=== PATIENT | female | born 1980 | race Caucasian/White ===

== ENCOUNTER 2020-06-01 06:55 | Day surgery (SDC) | payer MEDICAID ==
[~2020-06-01 06:55] MED LIST: Lidocaine 1%/Sod Bicarbonate in NS 8.4% 1 ML Syringe IDERM PRN; Sodium Chloride 0.9% 10 ML Syringe FLUSH PRN
[2020-06-01] MEDS ORDERED: Rocuronium 50 MG/5 ML Vial ONE ×2 (07:11→09:23)
[2020-06-01] MEDS ORDERED: Ondansetron 4 MG/2 ML SDV ONE (07:11)
[2020-06-01] MEDS ORDERED: Propofol 200 MG/20 ML SDV ONE (07:11)
[2020-06-01] MEDS ORDERED: Lidocaine 1% 4 ML ONE (07:11)
[2020-06-01] MEDS ORDERED: Midazolam 1 MG/ML 2 ML SDV ONE (07:12)
[2020-06-01] MEDS ORDERED: ceFAZolin 1 GM Vial ONE (07:12)
[2020-06-01] MEDS ORDERED: fentaNYL 250 MCG/5 ML SDV ONE (07:12)
[2020-06-01] MEDS ORDERED: Dexamethasone 4 MG/ML 5 ML MDV ONE (07:13)
--- NOTE | 2020-06-01 07:26 | PCM.PREANE ---
Preanesthetic Assessment - Procedure Proposed Procedure: lap assisted vag hyst with bs - Anesthesia/Transfusion/Family Hx Anesthesia History: Prior Anesthesia Without Reaction Family History of Anesthesia Reaction: No Transfusion History: No Prior Transfusion(s) - Review of Systems General: No Symptoms Pulmonary: No Symptoms Cardiovascular: No Symptoms Gastrointestinal: No Symptoms Neurological: No Symptoms Other: Reports: Easy Bruising, Thyroid Problems, Depression, Anxiety - Physical Assessment NPO Status Date: 05/31/20 NPO Status Time: 22:00 Vital Signs: 140/87 87 97% 18 97.8 Height: 5 ft 3 in Weight: 123.5 kg ASA Class: 3 Mental Status: Alert & Oriented x3 Airway Class: Mallampati = 1 Dentition: Reports: Normal Dentition Thyro-Mental Finger Breadths: 3 Mouth Opening Finger Breadths: 3 ROM/Head Extension: Full Lungs: Clear to Auscultation, Normal Respiratory Effort Cardiovascular: Regular Rate, Regular Rhythm, No Murmurs - Lab Values: Laboratory Last Values WBC 8.04 K/mm3 (3.98-10.04) 05/28/20 11:20 RBC 5.15 M/mm3 (3.98-5.22) 05/28/20 11:20 Hgb 13.5 gm/dl (11.2-15.7) 05/28/20 11:20 Hct 41.1 % (34.1-44.9) 05/28/20 11:20 MCV 79.8 fl (79.4-94.8) D 05/28/20 11:20 MCH 26.2 pg (25.6-32.2) 05/28/20 11:20 MCHC 32.8 g/dl (32.2-35.5) 05/28/20 11:20 RDW Std Deviation 41.9 fL (36.4-46.3) 05/28/20 11:20 Plt Count 246 K/mm3 (182-369) 05/28/20 11:20 MPV 11.4 fl (9.4-12.3) 05/28/20 11:20 Neut % (Auto) 69.9 % (34.0-71.1) 05/28/20 11:20 Lymph % (Auto) 20.6 % (19.3-51.7) 05/28/20 11:20 [place] % (Auto) 6.8 % (4.7-12.5) 05/28/20 11:20 Eos % (Auto) 2.0 (0.7-5.8) 05/28/20 11:20 Baso % (Auto) 0.5 % (0.1-1.2) 05/28/20 11:20 Neut # (Auto) 5.61 K/mm3 (1.56-6.13) 05/28/20 11:20 Lymph # (Auto) 1.66 K/mm3 (1.18-3.74) 05/28/20 11:20 [place] # (Auto) 0.55 K/mm3 (0.24-0.36) H 05/28/20 11:20 Eos # (Auto) 0.16 K/mm3 (0.04-0.36) 05/28/20 11:20 Baso # (Auto) 0.04 K/mm3 (0.01-0.08) 05/28/20 11:20 Sodium 138 mEq/L (136-145) 05/28/20 11:20 Potassium 4.1 mEq/L (3.5-5.1) 05/28/20 11:20 Chloride 104 mEq/L (98-107) 05/28/20 11:20 Carbon Dioxide 25 mEq/L (21-32) 05/28/20 11:20 Anion Gap 13.1 (5-15) 05/28/20 11:20 BUN 12 mg/dL (7-18) 05/28/20 11:20 Creatinine 0.6 mg/dL (0.55-1.02) 05/28/20 11:20 Est Cr Clr Drug Dosing TNP 05/28/20 11:20 Estimated GFR (MDRD) > 60 mL/min (>60) 05/28/20 11:20 BUN/Creatinine Ratio 20.0 (14-18) H 05/28/20 11:20 Glucose 92 mg/dL (74-106) 05/28/20 11:20 Calcium 8.9 mg/dL (8.5-10.1) 05/28/20 11:20 Total Bilirubin 0.7 mg/dL (0.2-1.0) 05/28/20 11:20 AST 18 U/L (15-37) 05/28/20 11:20 ALT 39 U/L (14-59) 05/28/20 11:20 Alkaline Phosphatase 103 U/L (46-116) 05/28/20 11:20 Total Protein 7.2 g/dl (6.4-8.2) 05/28/20 11:20 Albumin 3.5 g/dl (3.4-5.0) 05/28/20 11:20 Globulin 3.7 gm/dL 05/28/20 11:20 Albumin/Globulin Ratio 1.0 (1-2) 05/28/20 11:20 Urine Color Yellow (Yellow) 05/28/20 11:20 Urine Appearance Clear (Clear) 05/28/20 11:20 Urine pH 7.0 (5.0-8.0) 05/28/20 11:20 Ur Specific [place] 1.025 (1.005-1.030) 05/28/20 11:20 Urine Protein Negative (Negative) 05/28/20 11:20 Urine Glucose (UA) Negative (Negative) 05/28/20 11:20 Urine Ketones Negative (Negative) 05/28/20 11:20 Urine Occult Blood Negative (Negative) 05/28/20 11:20 Urine Nitrite Negative (Negative) 05/28/20 11:20 Urine Bilirubin Negative (Negative) 05/28/20 11:20 Urine Urobilinogen 0.2 (0.2-1.0) 05/28/20 11:20 Ur Leukocyte Esterase Negative (Negative) 05/28/20 11:20 SARS-CoV-2 (PCR) Not detected (NOT DETECT) 05/28/20 11:00 - Allergies Allergies/Adverse Reactions: Allergies Allergy/AdvReac Type Severity Reaction Status Date / Time No Known Allergies Allergy Verified 05/31/20 14:04 - Blood Blood Available: Yes - Acknowledgements Anesthesia Type Planned: General Anesthesia Pt an Appropriate Candidate for the Planned Anesthesia: Yes Alternatives and Risks of Anesthesia Discussed w Pt/Guardian: Yes Pt/Guardian Understands and Agrees with Anesthesia Plan: Yes PreAnesthesia Questionnaire HEENT History: Reports: Impaired Vision Cardiovascular History: Reports: High Cholesterol Respiratory History: Reports: None Gastrointestinal History: Reports: Other (See Below) Other Gastrointestinal History: Difficulty loosing weight MASSAGE THERAPIST History: Reports: Polycystic Ovaries Other OB/BYN History: Irregular Menstrual Bleeding Neurological History: Reports: Migraines Psychiatric History: Reports: Anxiety, Depression, Other (See Below) Other Psychiatric History: Fatigue Endocrine/Metabolic History: Reports: Hypothyroidism, Obesity/BMI 30+ Oncologic (Cancer) History: Reports: None - Past Surgical History HEENT Surgical History: Reports: Adenoidectomy, Tonsillectomy, Other (See Below) Other HEENT Surgeries/Procedures: Otoplasty Musculoskeletal Surgical History: Reports: Other (See Below) (cyst wrist) - SUBSTANCE USE Smoking Status *Q: Never Smoker Tobacco Use Within Last Twelve Months: No Second Hand Smoke Exposure: No Days Per Week of Alcohol Use: 0 Recreational Drug Use History: No - HOME MEDS Home Medications: Home Meds Cholecalciferol (Vitamin D3) [Vitamin D] 05/31/20 [History] Cyclobenzaprine [Flexeril] 1 - 2 tab PO ASDIRECTED PRN 05/31/20 [History] LORazepam [Ativan] 0.5 mg PO ASDIRECTED PRN 05/31/20 [History] Levothyroxine [Synthroid] 100 mcg PO QAM 05/31/20 [History] Multivitamin 1 tab PO DAILY 05/31/20 [History] Vortioxetine Hydrobromide [Trintellix] 20 mg PO BEDTIME 05/31/20 [History] atorvaSTATin [Lipitor] 40 mg PO BEDTIME 05/31/20 [History] metFORMIN HCl [Metformin HCl ER] 500 mg PO BID 05/31/20 [History] - CURRENT (IN HOUSE) MEDS Current Meds: Current Medications Lactated Ringer's (Ringers, Lactated) 1,000 mls @ 125 mls/hr IV ASDIRECTED SHOSHANA Stop: 06/01/20 23:00 Lidocaine/Sodium Bicarbonate (Buffered Lidocaine 1% In Ns 8.4%) 0.25 ml IDERM ONETIME PRN PRN Reason: Prior to IV Start Stop: 06/01/20 18:00 Sodium Chloride (Saline Flush) 10 ml FLUSH ASDIRECTED PRN PRN Reason: Keep Vein Open Stop: 06/01/20 18:00 Discontinued Medications Cefazolin Sodium (Ancef) Confirm Administered Dose 3 gm .ROUTE .STK-MED ONE Stop: 06/01/20 07:13 Dexamethasone (Dexamethasone) Confirm Administered Dose 20 mg .ROUTE .STK-MED ONE Stop: 06/01/20 07:14 Fentanyl (Sublimaze) Confirm Administered Dose 250 mcg .ROUTE .STK-MED ONE Stop: 06/01/20 07:13 Lidocaine HCl (Xylocaine-Mpf 1%) Confirm Administered Dose 4 mls @ as directed .ROUTE .STK-MED ONE Stop: 06/01/20 07:12 Midazolam HCl (Versed 1 Mg/Ml) Confirm Administered Dose 2 mg .ROUTE .STK-MED ONE Stop: 06/01/20 07:13 Ondansetron HCl (Zofran) Confirm Administered Dose 4 mg .ROUTE .STK-MED ONE Stop: 06/01/20 07:12 Propofol (Diprivan 20 Ml) Confirm Administered Dose 200 mg .ROUTE .STK-MED ONE Stop: 06/01/20 07:12 Rocuronium [place] (Zemuron) Confirm Administered Dose 50 mg .ROUTE .STK-MED ONE Stop: 06/01/20 07:12
[2020-06-01] MEDS: Lactated Ringers 1,000 ML IV SCH ×3 (07:35→13:36)
[2020-06-01] MEDS ORDERED: Ketamine 500 mg/10 ML MDV ONE (08:43)
[2020-06-01] MEDS ORDERED: fentaNYL 100 MCG/2 ML SDV IVPUSH PRN (08:51)
[2020-06-01] MEDS ORDERED: Ondansetron 4 MG/2 ML SDV IVPUSH PRN ×2 (08:51→10:27)
[2020-06-01] MEDS: Bupivacaine 0.5% 10 ML SDV ONE ×2 (08:57→09:25)
[2020-06-01] MEDS ORDERED: Lactated Ringers 1,000 ML ONE (08:59)
[2020-06-01] MEDS ORDERED: ePHEDrine Sulfate/0.9% NaCl/Pf 25 MG/5 ML SYRINGE IV ONE (09:18)
[2020-06-01] MEDS: Lidocaine 1% with EPINEPHrine 1:100,000 20 ML MDV ONE ×2 (09:25→09:45)
[2020-06-01] MEDS: Sodium Chloride 0.9% 50 ML SDV ONE ×2 (09:26→09:45)
[2020-06-01] MEDS ORDERED: Acetaminophen/oxyCODONE 325-5 MG Tab PO PRN (10:27)
--- NOTE | 2020-06-01 10:40 | PCM.POSTAN ---
POST ANESTHESIA ASSESSMENT - MENTAL STATUS Mental Status: Alert, Oriented - VITAL SIGNS Vital Signs: Last Vital Signs Temp 98.8 F 06/01/20 10:32 Pulse 87 06/01/20 07:10 Resp 11 L 06/01/20 10:32 BP 94/47 L 06/01/20 10:32 Pulse Ox 96 06/01/20 10:32 94/47 96% 68 11 98.7f - RESPIRATORY Respiratory Status: Respiratory Rate WNL, Airway Patent, O2 Saturation Stable, Supplemental Oxygen - CARDIOVASCULAR CV Status: Pulse Rate WNL, Blood Pressure Stable - GASTROINTESTINAL GI Status: No Symptoms - PAIN Pain Score: 0 - POST OP HYDRATION Hydration Status: Adequate & Stable
--- NOTE | 2020-06-01 10:47 | PCM.OPNOTE ---
- General Post-Op/Procedure Note Date of Surgery/Procedure: 06/01/20 Operative Procedure(s): Laparoscopically assisted vaginal hysterectomy with bilateral salpingectomy Findings: Ovaries bilaterally were within normal limits and of reproductive age parents. Uterus is small, no adnexal abnormalities noted. Liver edge was without concern. Cervix is nulliparous. Vaginal vault was nulliparous. Pre Op Diagnosis: 1. Abnormal uterine bleeding. 2. Menorrhagia. 3. Dy smenorrhea Post-Op Diagnosis: Same Anesthesia Technique: General ET Tube Other Anesthesia Type: Marcaine 0.5% - 10 cc local, lidocaine quarter percent with epi15 cclocal Primary Surgeon: Giuseppe Hayden Secondary Surgeon: Tamar Chris Anesthesia Provider: Reynaldo [employer]inery Pipeline Operator: Jimena Bales Reason Refinery Pipeline Operator Was Necessary: Retraction, assistance, patient safety, quality of care. Pathology: Uterus, fallopian tubes bilaterally as 1 specimen Fluid Replacement, Intraop: 1,900 Output, Urine Amount: 125 EBL in mLs: 125 Drain/Tube Comments:: Indwelling bladder catheter during procedure only Complications: None Condition: Good Free Text/Narrative:: Surgery duration: 85 minutes The patient was taken to the operating room placed in supine position on the operating table. She received 3 g of Ancef preoperatively for infection prophylaxis. She had signed consent previously. After adequate anesthesia patient was placed in a dorsal lithotomy position. It should be noted she had sequential compression stockings in place for DVT prophylaxis. A uterine manipulator was placed as was an latex free indwelling bladder catheter. This was done after adequate prepping and draping. The patient was placed in supine position and 3 laparoscopic port sites were developed. Marcaine 0.5% approximately 3-5 mL was injected at each site. Verres needle was placed and pneumoperitoneum was achieved with 3 L of CO2. Infraumbilical, suprapubic and 2 lateral port sites were developed. Under laparoscopic guidance the upper portion of the hysterectomy was performed. The right fallopian tube was elevated and using the seal vessel closure system was taken down in the usual fashion. The ovarian ligament, broad ligament and round ligament were then taken down. The ovary was spared per patient desire. Same procedure was done on the patient's left side. The bilateral broad ligaments was taken down to the area of the uterine vasculature. Uterine vasculature was developed in the usual fashion using the cautery system. Both uterine arteries were identified and developed. The bladder flap was then developed. Vaginal approach was then undertaken. The patient was placed in the dorsal lithotomy position and a weighted speculum was placed in the vagina. The cervix was injected with lidocaine quarter percent with epinephrine 15 mL total. A full circumference incision was made through the epithelium around the cervix. Posterior cul-de-sac was entered without problems. The left uterosacral ligament and then the right uterosacral were taken down using the Enseal vessel closure system. The cardinal ligament and what remained of the uterine vascular vessels and cervical branches of the vessels were managed with the Enseal vessel closure system on each side. Anterior cul-de-sac was then entered and the remaining portion of broad ligament on the right side and a small portion of broad ligament remaining on the left side were then developed in the usual fashion. Uterus was then removed. At this point the uterus was completely removed and sent as specimen. The vaginal cuff was then run with a locked running suture of 0 Monocryl from the 2 o'clock position to the 10 o'clock position. The vagina was closed with a running locked suture of 0 Monocryl. Hemostasis was confirmed this time and no bleeding was noted. Laparoscopy was then performed to ensure hemostasis. Pneumoperitoneum was reestablished and the laparoscope was placed. Suction and irrigation were used to clear some old blood from the pelvis. The pelvis was found to be hemostatically intact. There was no evidence of any bowel adhesion to the vaginal cuff area noted. The sleeves were removed under direct visualization and the upper sleeve was removed after reversal of the pneumoperitoneum. Each of these sites were closed with a single interrupted suture of 3-0 Monocryl. They were further approximated with Dermabond skin glue. At this point the patient was awakened from general endotracheal anesthesia. The Hanna catheter had been removed by this time. She is discharged from the operating room in good condition.
[2020-06-01] MEDS ORDERED: Ketorolac 30 MG/ML SDV ONE (10:53)
[2020-06-01] MEDS ORDERED: Ketorolac 30 MG/ML SDV IVPUSH SCH (11:00)
[2020-06-01] MEDS: HYDROmorphone 0.5 MG/0.5 ML Syringe IVPUSH PRN ×2 (11:02→11:33)
--- NOTE | 2020-06-01 11:45 | PCM48HPAN ---
Post Anesthesia Note - EVALUATION WITHIN 48HRS OF ANESTHETIC Vital Signs in Normal Range: Yes Patient Participated in Evaluation: Yes Respiratory Function Stable: Yes Airway Patent: Yes Cardiovascular Function Stable: Yes Hydration Status Stable: Yes Pain Control Satisfactory: Yes Nausea and Vomiting Control Satisfactory: Yes Mental Status Recovered: Yes Vital Signs: Last Vital Signs Temp 36.2 C 06/01/20 11:20 Pulse 87 06/01/20 07:10 Resp 20 06/01/20 11:20 BP 106/78 06/01/20 11:20 Pulse Ox 97 06/01/20 11:20
[2020-06-01] MEDS ORDERED: Ibuprofen 800 MG Tab PO PRN (17:00)
== END 2020-06-01 14:52 | disposition home or self-care (01) ==
LOC: JD.SDS 06:55
PROVIDERS: ATTEND Obstetrics & Gynecology
DX: N72 Inflammatory disease of cervix uteri (principal); N87.9 Dysplasia of cervix uteri, unspecified; N80.0 Endometriosis of uterus; F41.9 Anxiety disorder, unspecified; F32.9 Major depressive disorder, single episode, unspecified; E78.00 Pure hypercholesterolemia, unspecified; E03.9 Hypothyroidism, unspecified; E28.2 Polycystic ovarian syndrome; E66.9 Obesity, unspecified; Z79.899 Other long term (current) drug therapy; Z79.890 Hormone replacement therapy; Z68.42 Body mass index [BMI] 45.0-49.9, adult; Z01.812 Encounter for preprocedural laboratory examination; Z20.828 Contact with and (suspected) exposure to other viral communicable diseases
CPT/HCPCS: 36415; 58552; 80053; 81003; 81025; 85025; 86850; 86900; 86901; 87635; A9270; J0171; J0690; J1100; J1170; J1885; J2001; J2250; J2405; J2704; J2710; J3010; J3490; J7120; 00944; U0002